=== PATIENT | male | born 1940 | race Caucasian/White ===

== ENCOUNTER 2021-03-02 20:12 | Inpatient (IN) | payer MEDICARE, OTHER ==
[~2021-03-02] VITALS: Ht 162.6 cm; Wt 45.5 kg
[2021-03-02 20:47] LABS: HEMOGLOBIN 15.7 gm/dl (14.0-17.5); RED BLOOD COUNT 5.06 M/UL (4.20-5.50); WHITE BLOOD COUNT 7.1 K/UL (4.5-11.0)
[2021-03-02 21:06] LABS: BUN/CREATININE RATIO 9 (0-10)
[2021-03-03 15:08] LABS: BUN/CREATININE RATIO 15 (0-10)
[2021-03-04 05:14] LABS: HEMOGLOBIN 13.7 gm/dl (14.0-17.5); RED BLOOD COUNT 4.53 M/UL (4.20-5.50); WHITE BLOOD COUNT 16.9 K/UL (4.5-11.0)
[2021-03-05 04:31] LABS: WHITE BLOOD COUNT 12.9 K/UL (4.5-11.0)
[2021-03-05 04:43] LABS: HEMOGLOBIN 10.2 gm/dl (14.0-17.5); RED BLOOD COUNT 3.5 M/UL (4.20-5.50)
[2021-03-05 07:20] LABS: BUN/CREATININE RATIO 20 (0-10)
[2021-03-06 03:38] LABS: WHITE BLOOD COUNT 11.9 K/UL (4.5-11.0)
[2021-03-06 03:39] LABS: RED BLOOD COUNT 3.99 M/UL (4.20-5.50)
[2021-03-07 00:11] LABS: HEMOGLOBIN 11.9 gm/dl (14.0-17.5); RED BLOOD COUNT 3.92 M/UL (4.20-5.50); WHITE BLOOD COUNT 11.7 K/UL (4.5-11.0)
[2021-03-08 04:35] LABS: RED BLOOD COUNT 3.97 M/UL (4.20-5.50)
[2021-03-08 04:39] LABS: WHITE BLOOD COUNT 7.7 K/UL (4.5-11.0)
[2021-03-08 04:50] LABS: BUN/CREATININE RATIO 33 (0-10)
[2021-03-09 04:40] LABS: HEMOGLOBIN 12.6 gm/dl (14.0-17.5); RED BLOOD COUNT 4.12 M/UL (4.20-5.50); WHITE BLOOD COUNT 8.7 K/UL (4.5-11.0)
[2021-03-09 05:02] LABS: BUN/CREATININE RATIO 37 (0-10)
[2021-03-10 05:09] LABS: HEMOGLOBIN 12.6 gm/dl (14.0-17.5); RED BLOOD COUNT 4.3 M/UL (4.20-5.50); WHITE BLOOD COUNT 9.6 K/UL (4.5-11.0)
[2021-03-10 05:35] LABS: BUN/CREATININE RATIO 42 (0-10)
[2021-03-11 05:34] LABS: HEMOGLOBIN 12.5 gm/dl (14.0-17.5); RED BLOOD COUNT 4.17 M/UL (4.20-5.50); WHITE BLOOD COUNT 9.8 K/UL (4.5-11.0)
[2021-03-11 05:53] LABS: BUN/CREATININE RATIO 56 (0-10)
[2021-03-11 12:14] LABS: ORGANISM ID Not indicated. (.); SPECIMEN SOURCE Urine (.); STREPTOCOCCUS PNEUMONIAE AG Negative (Negative)
--- NOTE | 2021-03-12 02:50 | NUR ---
Rectal tube came out during bath. Report received it had also came out on 7am shift. Tube will be left out at this time .
[2021-03-12 05:33] LABS: HEMOGLOBIN 12.8 gm/dl (14.0-17.5); RED BLOOD COUNT 4.28 M/UL (4.20-5.50); WHITE BLOOD COUNT 11.6 K/UL (4.5-11.0)
[2021-03-12 05:52] LABS: BUN/CREATININE RATIO 57 (0-10)
[2021-03-13 17:12] LABS: HEPARIN INDUCED PLATELET AB 0.088 OD (0.000-0.400)
== END 2021-03-12 14:24 | disposition expired | DRG 870 ==
LOC: ER1 20:12 → PROG CARE 23:40 → CDU 23:40 → CCU 23:40 → PROG CARE 03-03 01:50 → CCU 03-05 09:06
PROVIDERS: Internal Medicine; Internal Medicine Gastroenterology; Internal Medicine Pulmonary Disease; ADMIT Internal Medicine
PROC: 5A1955Z Respiratory Ventilation, Greater than 96 Consecutive Hours (ICD-10-PCS; 2021-03-05)
PROC: 0DC38ZZ Extirpation of Matter from Lower Esophagus, Via Natural or Artificial Opening Endoscopic (ICD-10-PCS; 2021-03-05)
PROC: 0BH17EZ Insertion of Endotracheal Airway into Trachea, Via Natural or Artificial Opening (ICD-10-PCS; principal; 2021-03-05 11:40)
PROC: B24BZZ4 Ultrasonography of Heart with Aorta, Transesophageal (ICD-10-PCS; 2021-03-06)
DX: A41.9 Sepsis, unspecified organism (principal); J96.21 Acute and chronic respiratory failure with hypoxia; I21.A1 Myocardial infarction type 2; Z20.822 Contact with and (suspected) exposure to COVID-19; R65.20 Severe sepsis without septic shock; Z51.5 Encounter for palliative care; J69.0 Pneumonitis due to inhalation of food and vomit; J96.22 Acute and chronic respiratory failure with hypercapnia; J18.9 Pneumonia, unspecified organism; J44.1 Chronic obstructive pulmonary disease with (acute) exacerbation; J44.0 Chronic obstructive pulmonary disease with (acute) lower respiratory infection; E87.0 Hyperosmolality and hypernatremia; E87.2 Acidosis; Z99.11 Dependence on respirator [ventilator] status; N17.9 Acute kidney failure, unspecified; G93.49 Other encephalopathy; I11.0 Hypertensive heart disease with heart failure; T18.128A Food in esophagus causing other injury, initial encounter; I50.9 Heart failure, unspecified; I25.10 Atherosclerotic heart disease of native coronary artery without angina pectoris; R73.9 Hyperglycemia, unspecified; T38.0X5A Adverse effect of glucocorticoids and synthetic analogues, initial encounter; E87.8 Other disorders of electrolyte and fluid balance, not elsewhere classified; E83.42 Hypomagnesemia; K22.2 Esophageal obstruction; E87.6 Hypokalemia; R53.81 Other malaise; R33.9 Retention of urine, unspecified; F17.210 Nicotine dependence, cigarettes, uncomplicated; Z85.038 Personal history of other malignant neoplasm of large intestine; Z90.49 Acquired absence of other specified parts of digestive tract; Z82.49 Family history of ischemic heart disease and other diseases of the circulatory system; Z71.6 Tobacco abuse counseling
CPT/HCPCS: ECHO; 31500; 36415; 36600; 71045; 71275; 80048; 80053; 80202; 81001; 82550; 82553; 82570; 82607; 82803; 82962; 83605; 83735; 83880; 84100; 84132; 84133; 84439; 84443; 84484; 85025; 85027; 85049; 85379; 85610; 85730; 86140; 87040; 87070; 87081; 87205; 87278; 87899; 92610; 93005; 93306; 94002; 94003; 94640; 94660; 94664; 94668; 94760; 96365; 96375; 97110-GP-CQ; 97162; 97166; 97535; 99285; A6212; J0330; J0360; J0610; J0696; J1205; J1335; J1630; J1644; J1650; J1940; J2020; J2250; J2270; J2543; J2704; J2920; J2930; J3370; J3475; J3480; J7030; J7040; J7070; P9047; Q9963; Q9967; U0002